=== PATIENT | female | born 1980 ===

== ENCOUNTER 2017-07-08 08:30 | Emergency (ER) | payer OTHER ==
--- NOTE | 2017-07-08 09:05 | EDM.PDOC ---
ED HPI GENERAL MEDICAL PROBLEM - General Chief Complaint: Respiratory Problem Stated Complaint: DIFFICULTY BREATHING Time Seen by Provider: 07/08/17 08:44 Source of Information: Reports: Patient, Family (), RN Notes Reviewed History Limitations: Reports: Language Barrier (Sapnish-speaking only. acted as natural resource officer.) - History of Present Illness INITIAL COMMENTS - FREE TEXT/NARRATIVE: The patient, through her , states that she has had shortness of breath for the past 7 days, but that it is worse this morning. She feels like she can' t get enough air. She has also been experiencing tightness in her throat when swallowing, some chest discomfort, and tingling in both of her hands, worse on the right than on the left, also for the past week. It is noted that the patient's oxygen saturation is 100% on room air. The patient had similar symptoms about 2 years ago. She was evaluated by a physician in [place], and was told that her symptoms were due to elevated blood pressure. She was prescribed an antihypertensive medication, but then her blood pressure went too low, so it was discontinued. The patient volunteered that she is feeling stressed and depressed at work. The patient's PCP is Shilpa Rodriguez. Left Chest Pain Score (Numeric/FACES): 5 - Related Data Allergies Allergy/AdvReac Type Severity Reaction Status Date / Time No Known Allergies Allergy Verified 07/08/17 08:45 Home Meds: Home Meds Alogliptin Sloan/Pioglitazone [Oseni 25-15 mg Tablet] 1 each PO DAILY 07/08/17 [ History] Canagliflozin/Metformin HCl [Invokamet 150-1,000 mg Tablet] 1 each PO BID [History] Insulin Glarg,Human.Rec.Analog [LantUS] 30 unit SUBCUT BEDTIME 07/08/17 [History ] atorvaSTATin [Lipitor] 40 mg PO DAILY 07/08/17 [History] Past Medical History Cardiovascular History: Reports: High Cholesterol Gastrointestinal History: Reports: GERD Endocrine/Metabolic History: Reports: Diabetes, Type II - Past Surgical History GI Surgical History: Reports: Hernia Repair/Other Social & Family History - Tobacco Use Smoking Status *Q: Never Smoker - Alcohol Use Alcohol Use History: No - Recreational Drug Use Recreational Drug Use: No - Living Situation & Occupation Living situation: Reports: , with Spouse Occupation: Employed ([employer]) ED ROS GENERAL - Review of Systems Review Of Systems: See Below Constitutional: Reports: No Symptoms HEENT: Reports: No Symptoms Respiratory: Reports: No Symptoms Cardiovascular: Reports: No Symptoms Endocrine: Reports: No Symptoms GI/Abdominal: Reports: No Symptoms : Reports: No Symptoms Musculoskeletal: Reports: No Symptoms Skin: Reports: No Symptoms Neurological: Reports: No Symptoms Psychiatric: Reports: No Symptoms Hematologic/Lymphatic: Reports: No Symptoms Immunologic: Reports: No Symptoms ED EXAM, GENERAL - Physical Exam Exam: See Below Exam Limited By: No Limitations General Appearance: Alert, WD/WN, Anxious Eye Exam: Bilateral Eye: Normal Inspection Ears: Normal External Exam, Hearing Grossly Normal Nose: Normal Inspection, No Blood Throat/Mouth: Normal Inspection, Normal Lips, Normal Voice, No Airway Compromise Head: Atraumatic, Normocephalic Neck: Normal Inspection, Full Range of Motion Respiratory/Chest: No Respiratory Distress, Lungs Clear, Normal Breath Sounds, No Accessory Muscle Use Cardiovascular: Normal Peripheral Pulses, Regular Rate, Rhythm, No Gallop, No JVD, No Murmur, No Rub Peripheral Pulses: 4+: Radial (L), Radial (R) GI/Abdominal: Normal Bowel Sounds, Soft, Non-Tender, No Organomegaly, No Distention, No Abnormal Bruit, No Mass (Female) Exam: Deferred Rectal (Female) Exam: Deferred Back Exam: Normal Inspection, Full Range of Motion, NT Extremities: Normal Inspection, Normal Range of Motion, No Pedal Edema, Normal Capillary Refill Neurological: Alert, Oriented, Normal Cognition, Normal Gait, Normal Reflexes, No Motor/Sensory Deficits Psychiatric: Normal Affect, Anxious Skin Exam: Warm, Dry, Intact, Normal Color, No Rash Lymphatic: No Adenopathy EKG INTERPRETATION EKG Date: 07/08/17 Time: 09:19 Rhythm: NSR Rate (Beats/Min): 87 [place]: Normal P-Wave: Present QRS: Normal ST-T: Normal QT: Normal Comparison: NA - No Prior EKG Course - Vital Signs Last Recorded V/S: Last Vital Signs Temp 36.6 C 07/08/17 08:45 Pulse 91 07/08/17 08:45 Resp 20 07/08/17 08:45 BP 131/81 07/08/17 08:45 Pulse Ox 100 07/08/17 08:45 Orthostatic Blood Pressure [ 131/85 Standing] Orthostatic Blood Pressure [ 119/83 Sitting] Orthostatic Blood Pressure [ 115/83 Supine] - Orders/Labs/Meds Orders: Active Orders 24 hr Category Date Time Status EKG Documentation Completion [RC] STAT Care 07/08/17 09:02 Active Orthostatic Vital Signs [RC] STAT Care 07/08/17 09:02 Active Chest 2V [CR] Stat Exams 07/08/17 09:02 Taken Labs: Laboratory Tests 07/08/17 07/08/17 07/08/17 Range/Units 09:10 09:10 09:27 WBC (3.98-10.04) K/mm3 RBC (3.98-5.22) M/mm3 Hgb (11.2-15.7) gm/L Hct (34.1-44.9) % MCV (79.4-94.8) fl MCH (25.6-32.2) pg MCHC (32.2-35.5) g/dl RDW Std Deviation (36.4-46.3) fL Plt Count (182-369) K/mm3 MPV (9.4-12.3) fl Neutrophils % (Manual) (40-60) % Band Neutrophils % (0-10) % Lymphocytes % (Manual) (20-40) % Atypical Lymphs % % Monocytes % (Manual) (2-10) % Eosinophils % (Manual) (0.7-5.8) % Basophils % (Manual) (0.1-1.2) Platelet Estimate RBC Morph Comment PT (8.0-13.0) SECONDS INR APTT (22-36) SECONDS D-Dimer, Quantitative (0.19-0.59) mg/L Puncture Site Lt radial ABG pH 7.40 (7.35-7.45) ABG pCO2 33.8 L (35.0-45.0) mmHg ABG pO2 74.0 L (80.0-100.0) mmHg ABG HCO3 20.6 L (22.0-26.0) meq/L ABG O2 Saturation 95.3 L (96.0-97.0) % ABG Base Excess -2.9 L (-2-2.0) Chandrakant Test Positive A-a Gradient 18 mmHg O2 Delivery Device Room air FiO2 21.00 (21.00-100.00) % Sodium (136-145) mEq/L Potassium (3.5-5.1) mEq/L Chloride (98-107) mEq/L Carbon Dioxide (21-32) mEq/L Anion Gap (5-15) BUN (7-18) mg/dL Creatinine (0.55-1.02) mg/dL Est Cr Clr Drug Dosing mL/min Estimated GFR (MDRD) (>60) mL/min BUN/Creatinine Ratio (14-18) Glucose (74-106) mg/dL Calcium (8.5-10.1) mg/dL Magnesium (1.8-2.4) mg/dl Total Bilirubin (0.2-1.0) mg/dL AST (15-37) U/L ALT (14-59) U/L Alkaline Phosphatase (46-116) U/L Troponin I (0.00-0.056) ng/mL Vvr-V-Rngfregnpwm Pept (0-125) pg/mL Total Protein (6.4-8.2) g/dl Albumin (3.4-5.0) g/dl Globulin gm/dL Albumin/Globulin Ratio (1-2) TSH 3rd Generation (0.358-3.74) uIU/mL Urine Color Light yellow (Yellow) Urine Appearance Clear (Clear) Urine pH 6.0 (5.0-8.0) Ur Specific [place] 1.010 (1.005-1.030) Urine Protein Negative (Negative) Urine Glucose (UA) 2+ H (Negative) Urine Ketones Negative (Negative) Urine Occult Blood Negative (Negative) Urine Nitrite Negative (Negative) Urine Bilirubin Negative (Negative) Urine Urobilinogen 0.2 (0.2-1.0) Ur Leukocyte Esterase Negative (Negative) Urine RBC Not seen (0-5) /hpf Urine WBC 0-5 (0-5) /hpf Ur Epithelial Cells 5-10 H (0-5) /hpf Urine Bacteria Not seen (FEW) /hpf Urine Mucus Not seen (FEW) /hpf Urine Yeast (Budding) Few H (NOT SEEN) Urine HCG, Qual Negative (NEGATIVE) 07/08/17 07/08/17 07/08/17 Range/Units 09:40 09:40 09:40 WBC 7.33 (3.98-10.04) K/mm3 RBC 4.87 (3.98-5.22) M/mm3 Hgb 14.7 (11.2-15.7) gm/L Hct 43.7 (34.1-44.9) % MCV 89.7 (79.4-94.8) fl MCH 30.2 (25.6-32.2) pg MCHC 33.6 (32.2-35.5) g/dl RDW Std Deviation 43.0 (36.4-46.3) fL Plt Count 250 (182-369) K/mm3 MPV 10.7 (9.4-12.3) fl Neutrophils % (Manual) 70 H (40-60) % Band Neutrophils % 0 (0-10) % Lymphocytes % (Manual) 28 (20-40) % Atypical Lymphs % 0 % Monocytes % (Manual) 2 (2-10) % Eosinophils % (Manual) 0 L (0.7-5.8) % Basophils % (Manual) 0 L (0.1-1.2) Platelet Estimate Adequate RBC Morph Comment Normal PT 9.9 (8.0-13.0) SECONDS INR 0.91 APTT 29 (22-36) SECONDS D-Dimer, Quantitative 0.20 (0.19-0.59) mg/L Puncture Site ABG pH (7.35-7.45) ABG pCO2 (35.0-45.0) mmHg ABG pO2 (80.0-100.0) mmHg ABG HCO3 (22.0-26.0) meq/L ABG O2 Saturation (96.0-97.0) % ABG Base Excess (-2-2.0) Chandrakant Test A-a Gradient mmHg O2 Delivery Device FiO2 (21.00-100.00) % Sodium 138 (136-145) mEq/L Potassium 3.8 (3.5-5.1) mEq/L Chloride 100 (98-107) mEq/L Carbon Dioxide 25 (21-32) mEq/L Anion Gap 16.8 H (5-15) BUN 13 (7-18) mg/dL Creatinine 0.8 (0.55-1.02) mg/dL Est Cr Clr Drug Dosing 71.95 mL/min Estimated GFR (MDRD) > 60 (>60) mL/min BUN/Creatinine Ratio 16.3 (14-18) Glucose 121 H (74-106) mg/dL Calcium 10.3 H (8.5-10.1) mg/dL Magnesium 1.8 (1.8-2.4) mg/dl Total Bilirubin 0.7 (0.2-1.0) mg/dL AST 21 (15-37) U/L ALT 37 (14-59) U/L Alkaline Phosphatase 77 (46-116) U/L Troponin I < 0.017 (0.00-0.056) ng/mL Bwq-[id number]-Grwdhvyzvfc Pept 5 (0-125) pg/mL Total Protein 9.0 H (6.4-8.2) g/dl Albumin 4.8 (3.4-5.0) g/dl Globulin 4.2 gm/dL Albumin/Globulin Ratio 1.1 (1-2) TSH 3rd Generation 1.115 (0.358-3.74) uIU/mL Urine Color (Yellow) Urine Appearance (Clear) Urine pH (5.0-8.0) Ur Specific [place] (1.005-1.030) Urine Protein (Negative) Urine Glucose (UA) (Negative) Urine Ketones (Negative) Urine Occult Blood (Negative) Urine Nitrite (Negative) Urine Bilirubin (Negative) Urine Urobilinogen (0.2-1.0) Ur Leukocyte Esterase (Negative) Urine RBC (0-5) /hpf Urine WBC (0-5) /hpf Ur Epithelial Cells (0-5) /hpf Urine Bacteria (FEW) /hpf Urine Mucus (FEW) /hpf Urine Yeast (Budding) (NOT SEEN) Urine HCG, Qual (NEGATIVE) - Re-Assessments/Exams Free Text/Narrative Re-Assessment/Exam: 07/08/17 09:38 The patient is not orthostatic. 07/08/17 09:48 The patient's ABG represents a chronic respiratory alkalosis with full metabolic compensation. 07/08/17 09:50 Two-view chest radiograph appears to be grossly normal. Cardiac silhouette is within normal limits. No pulmonary vascular congestion. No pleural effusions. No focal infiltrate. No pneumothorax. Formal read per the Radiologist pending. 07/08/17 11:18 Test results to explained to the patient and her via an natural resource officer. Today's workup demonstrates a chronic respiratory alkalosis, with the remainder of the workup being unremarkable. This is consistent with hyperventilation syndrome. For today's purposes, I will treat the patient with some Ativan, then have her follow-up with Altagracia Rodriguez to discuss long-term treatment for anxiety, such as an SSRI. Departure - Departure Time of Disposition: 11:19 Disposition: Home, Self-Care 01 Condition: Good Clinical Impression: Hyperventilation syndrome - Discharge Information Referrals: Cris Rodriguez RESEARCH/PROGRAM DIRECTOR [Primary Care Provider] - Forms: ED Department Discharge Additional Instructions: You were seen in the emergency room for a week of shortness of breath, tightness in your neck when you swallow, upper chest tightness, and tingling in both of your hands. Workup in the ER included blood work, an ABG, a urinalysis, a urine test, an ECG, a chest x-ray, and positional blood pressure checks. Your workup demonstrated that you have been hyperventilating. Hyperventilation is usually caused by anxiety, although can be caused by a variety of medical conditions including metabolic acidosis, hypocalcemia, hypoglycemia, hyperthyroidism, liver failure, severe anemia, sepsis, acute coronary event, pneumothorax, pneumonia, dysrhythmia, PE, and CHF. These have been ruled out. By a process of elimination, it appears that your hyperventilation is due to anxiety. We recommend you follow-up with your PCP, Shilpa Rodriguez, to discuss long-term treatment of anxiety, such as an SSRI. If any other problems, please do not hesitate to return to the ER. - My Orders Last 24 Hours: My Active Orders 07/08/17 09:02 EKG Documentation Completion [RC] STAT Orthostatic Vital Signs [RC] STAT Chest 2V [CR] Stat - Assessment/Plan Last 24 Hours: My Active Orders 07/08/17 09:02 EKG Documentation Completion [RC] STAT Orthostatic Vital Signs [RC] STAT Chest 2V [CR] Stat
[2017-07-08] MEDS ORDERED: LORazepam 1 MG Tab PO ONE (11:19)
[2017-07-08 11:56] VITALS: BP 121/81
--- NOTE | 2017-07-09 07:26 | CR ---
Chest: Two views of the chest were obtained. Comparison: No prior chest x-ray. Heart size and mediastinum are normal. Lungs are clear. Bony structures appear within normal limits. Impression: 1. Nothing acute is identified on two-view chest x-ray. Diagnostic code #1
== END 2017-07-08 11:56 | disposition home or self-care (01) ==
LOC: JD.ED 08:30
DX: F45.8 Other somatoform disorders (principal); E78.00 Pure hypercholesterolemia, unspecified; K21.9 Gastro-esophageal reflux disease without esophagitis; E11.9 Type 2 diabetes mellitus without complications; Z79.4 Long term (current) use of insulin; Z79.899 Other long term (current) drug therapy; Z98.890 Other specified postprocedural states
CPT/HCPCS: 36415; 36600; 71020; 80053; 81001; 81025; 82803; 83735; 83880; 84443; 84484; 85025; 85379; 85610; 85730; 93005; 99285; A9270; 99284